=== PATIENT | female | born 1995 | race Caucasian/White ===

== ENCOUNTER 2017-12-23 20:35 | Emergency (ER) | payer SELFPAY ==
[~2017-12-23] VITALS: Ht 160 cm; Wt 78.5 kg
[2017-12-23 20:43] VITALS: Ht 160 cm; Wt 78.5 kg
[2017-12-24 00:02] VITALS: BP 116/71
== END 2017-12-24 00:02 | disposition left against medical advice (07) ==
LOC: ED 20:35
DX: R10.9 Unspecified abdominal pain (principal); M54.9 Dorsalgia, unspecified

== ENCOUNTER 2018-01-16 21:23 | Emergency (ER) | payer SELFPAY ==
[~2018-01-16] VITALS: Ht 160 cm; Wt 81.6 kg
[2018-01-16 21:47] VITALS: BP 104/70; Ht 160 cm; Wt 81.6 kg
== END 2018-01-17 00:36 | disposition home or self-care (01) ==
LOC: ED 21:23
DX: N93.9 Abnormal uterine and vaginal bleeding, unspecified (principal)

== ENCOUNTER 2018-02-05 13:59 | Emergency (ER) | payer SELFPAY ==
[~2018-02-05] VITALS: Ht 160 cm; Wt 81.2 kg
[2018-02-05 14:38] VITALS: Ht 160 cm; Wt 81.2 kg
[2018-02-05 15:55] LABS: CALCIUM 8.7 mg/dL (8.5-10.1); CARBON DIOXIDE 30.7 mmol/L (21-32); CHLORIDE SERUM 102 mmol/L (98-107); CREATININE SERUM 0.8 mg/dL (0.6-1.0); GFR1 > 60 mL/min; GLUCOSE SERUM 94 mg/dL (74-106); POTASSIUM SERUM 3.8 mmol/L (3.5-5.1); SODIUM SERUM 138 mmol/L (136-145)
[2018-02-05 16:00] LABS: ALBUMIN 3.7 g/dL (3.4-5.0); ALKALINE PHOSPHATASE 57 U/L (46-116); ALT/SGPT 23 U/L (14-59); AMYLASE 78 U/L (25-115); AST/SGOT 18 U/L (15-37); BILIRUBIN TOTAL 0.61 mg/dL (0.20-1.00); LIPASE 167 IU/L (73-393); TOTAL PROTEIN, SERUM 8.2 g/dL (6.4-8.2)
[2018-02-05 16:17] LABS: BASOPHIL % 0.4 % (0-2); PLATELET COUNT 388 x10^3mcL (130-400)
[2018-02-05 17:15] VITALS: BP 102/65
== END 2018-02-05 17:16 | disposition home or self-care (01) ==
LOC: ED 13:59
PROVIDERS: Specialist
DX: R07.89 Other chest pain (principal); R10.13 Epigastric pain
CPT/HCPCS: 36415; J1885; Q0092

== ENCOUNTER 2018-07-14 21:32 | Emergency (ER) | payer SELFPAY ==
[~2018-07-14] VITALS: Ht 160 cm; Wt 80.5 kg
[2018-07-14 21:48] VITALS: Ht 160 cm; Wt 80.5 kg
[2018-07-14 22:51] VITALS: BP 131/69
== END 2018-07-14 22:51 | disposition home or self-care (01) ==
LOC: ED 21:32
DX: M79.671 Pain in right foot (principal)

== ENCOUNTER 2018-10-12 18:23 | Emergency (ER) | payer SELFPAY ==
[~2018-10-12] VITALS: Ht 160 cm; Wt 78.5 kg
[2018-10-12 18:33] VITALS: Ht 160 cm; Wt 78.5 kg
[2018-10-12 20:30] VITALS: BP 108/75
== END 2018-10-12 20:30 | disposition home or self-care (01) ==
LOC: ED 18:23
DX: S39.012A Strain of muscle, fascia and tendon of lower back, initial encounter (principal); S29.012A Strain of muscle and tendon of back wall of thorax, initial encounter; Z98.890 Other specified postprocedural states; W18.30XA Fall on same level, unspecified, initial encounter; Y93.89 Activity, other specified; Y92.89 Other specified places as the place of occurrence of the external cause; Y99.8 Other external cause status